=== PATIENT | male | born 2000 | race Caucasian/White ===

== ENCOUNTER 2022-03-03 04:45 | Emergency (ER) | payer OTHER ==
[2022-03-03 05:13] VITALS: BP 149/81; PULSE 95; TEMP 99.5; BMI 29.0
[2022-03-03] MEDS ORDERED: IBUPROFEN 600 MG TABLET (FP) PO ONE ×2 (05:29→05:37)
[2022-03-03 06:48] LABS: BASO % 0.4 % (0-2.0); EOS % 1.4 % (0-4.5); HEMATOCRIT 39.9 % (35.4-49); HEMOGLOBIN 13.5 GM/dL (11.7-16.9); MCH 29.4 pg (25.7-33.7); MCHC 33.9 g/dl (32.0-35.9); MEAN CELL VOLUME 86.6 fl (80-96); MEAN PLT VOLUME 10.6 fl (7.5-11.1); MONO % 7.6 % (3.8-10.2); NEUT % 71.6 % (42.8-82.8); PLATELET COUNT 195 10^3/uL (134-434); RBC 4.61 M/mm3 (4.00-5.60); RDW 13.1 % (11.9-15.9); WHITE BLOOD COUNT 8.7 K/mm3 (4.0-10.0)
[2022-03-03 07:09] LABS: CHLORIDE 108 mmol/L (98-107); SODIUM 138 mmol/L (136-145)
[2022-03-03 07:11] LABS: ALBUMIN 4.4 g/dl (3.4-5.0); ANION GAP 7 MMOL/L (8-16); BLOOD UREA NITROGEN 10.5 mg/dL (7-18); CALCIUM 9.3 mg/dL (8.5-10.1); CO2 23 mmol/L (21-32); GLUCOSE,RANDOM 101 mg/dL (74-106)
[2022-03-03 07:14] LABS: SGOT/AST 27 U/L (15-37); SGPT/ALT 43 U/L (13-61)
[2022-03-03 07:16] LABS: BILIRUBIN,TOTAL 0.4 mg/dL (0.2-1); TOT PROT 7.9 g/dl (6.4-8.2)
[2022-03-03 07:17] LABS: ALK PHOS 74 U/L (45-117)
[2022-03-03 09:06] LABS: ERYTHROCYTE SEDIMENTATION RATE 28 mm/hr (0-10)
== END 2022-03-03 11:00 | disposition home or self-care (01) ==
LOC: JER 04:45
DX: M79.651 Pain in right thigh (principal); R79.89 Other specified abnormal findings of blood chemistry
CPT/HCPCS: 36415; 73502-TC-RT-FY; 80053; 82550; 82553; 85025; 85651; 86140; 86618; 99284-25